=== PATIENT | female | born 1940 | race Caucasian/White ===

== ENCOUNTER → 2020-07-18 | Emergency (ER) | payer MEDICARE ==
[~2020-07-18] VITALS: Ht 165.1 cm; Wt 51.3 kg
[~2020-07-18] MED LIST: ASPIRIN 81 MG TAB.CHEW ONE; ASPIRIN 81 MG TAB.CHEW PO ONE; IV NS 0.9% 500 ML BAG IV ONE; NITROGLYCERIN PACKET 1 GM PACKET ONE; NITROGLYCERIN PATCH 0.2 MG/HR PATCH.TD24 TD SCH
[2020-07-18 19:35] LABS: BASOPHILS # (AUTO) 0.1 /CMM (0.0-0.2); BASOPHILS % (AUTO) 0.6 % (0.0-2.0); EOSINOPHILS % (AUTO) 0.3 % (0.0-6.0); HEMATOCRIT 44 % (33-45); HEMOGLOBIN 14.7 g/dL (11.5-14.8); LYMPHOCYTES # (AUTO) 1.4 /CMM (0.8-4.8); LYMPHOCYTES % (AUTO) 9.9 % (20.0-44.0); MEAN CORPUSCULAR HGB CONC 33 g/dl (31.0-36.0); MEAN CORPUSCULAR VOLUME 93 fL (82-100); MONOCYTES # (AUTO) 0.9 /CMM (0.1-1.30); NEUTROPHILS # (AUTO) 11.8 /CMM (1.8-8.9); NEUTROPHILS % (AUTO) 83.2 % (43.0-81.0); PLATELET COUNT (AUTO) 175 /CMM (150-450); RED BLOOD CELL COUNT(AUTO) 4.76 MIL/uL (4.0-5.2); WHITE BLOOD COUNT (AUTO) 14.2 K/uL (4.3-11.0)
[2020-07-18 19:44] LABS: CALCIUM, SERUM 9.6 mg/dL (8.5-10.1); CREATININE 0.8 mg/dL (0.6-1.3); POTASSIUM 3.9 mmol/L (3.5-5.1)
--- NOTE | 2020-07-18 19:46 | NUR ---
L SIDED CHEST PAIN S/P NASAL PROCEDURE AT [address] CAMACHO TO ER BED 4, VSS
[2020-07-18 19:49] LABS: ALBUMIN 3.8 g/dL (3.4-5.0); BILIRUBIN,DIRECT 0.2 mg/dL (0.0-0.2); BILIRUBIN,TOTAL 0.7 mg/dL (0.2-1.0); TOTAL PROTEIN, SERUM 7.7 g/dL (6.4-8.2)
--- NOTE | 2020-07-18 19:58 | NUR ---
SUPERVISOR POWDERED [facility] [facility] EXECUTIVE DIRECTOR (DR. SRIVASTAVA) PAGED PER REQUEST
--- NOTE | 2020-07-18 20:03 | NUR ---
DR. OJEDA SPEAKING WITH DR. SRIVASTAVA
--- NOTE | 2020-07-18 20:12 | NUR ---
SPOKE WITH ART FROM [facility], PER ART UNABLE TO ACCEPT PATIENT IF IN FACILITY >10MINUTES
--- NOTE | 2020-07-18 20:16 | NUR ---
CALLED 911 FOR IFT FOR HIGHER LEVEL OF CARE TRANSPORT TO [facility]
[2020-07-18 20:19] VITALS: BP 144/77
--- NOTE | 2020-07-18 20:22 | NUR ---
DR. OJEDA SPEAKING WITH DR. RAMIREZ FROM [facility]
--- NOTE | 2020-07-18 20:27 | NUR ---
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
--- NOTE | 2020-07-18 20:28 | NUR ---
PT TRANSFERRED OUT OF FACILITY TO [facility] VIA 911 IFT
== END | disposition short-term general hospital (02) ==
LOC: ER 19:05
DX: I21.9 Acute myocardial infarction, unspecified (principal); I45.10 Unspecified right bundle-branch block; Z20.822 Contact with and (suspected) exposure to COVID-19
CPT/HCPCS: 36415; 71045; 80048; 80076; 83690; 84484; 85025; 85730; 87081; 87426; 93005 ×2; 99291; J7040; C9803